=== PATIENT | female | born 1995 | race Caucasian/White ===

== ENCOUNTER 2020-06-20 10:48 | Emergency (ER) | payer MEDICAID, OTHER ==
[2020-06-20 11:08] VITALS: BP 129/85; PULSE 77
--- NOTE | 2020-06-20 11:23 | EDM.PDOC ---
ED HPI GENERAL MEDICAL PROBLEM - General Chief Complaint: Bite:Animal, Insect Stated Complaint: BATS IN THE HOUSE WANT TO BE CHECKED OUT Time Seen by Provider: 06/20/20 11:05 Source of Information: Reports: Patient, Family History Limitations: Reports: No Limitations - History of Present Illness INITIAL COMMENTS - FREE TEXT/NARRATIVE: 24-year-old female wants to be checked out due to potential bat exposure. The last 2 days they have had a bat in the house, the first day it was hanging on the bricks of the chimney and the second day it was flying around the lights near the roof. Her killed both bats. This morning she noticed a little scrape on her child's toe and started looking online and became very scared and came in to be checked. As far she knows there was no human contact with either bat. She just wants reassurance. Onset: Unknown/Unsure Associated Symptoms: Reports: No Other Symptoms - Related Data Allergies Allergy/AdvReac Type Severity Reaction Status Date / Time Penicillins Allergy Hives Verified 06/20/20 11:00 Home Meds: Home Meds NK [No Known Home Meds] 12/12/16 [History] Past Medical History - Past Health History Medical/Surgical History: Denies Medical/Surgical History Gastrointestinal History: Reports: Cholelithiasis MEDICAL ATTENDANT History: Reports: - Past Surgical History GI Surgical History: Reports: Cholecystectomy Female Surgical History: Reports: Section Social & Family History - Tobacco Use Smoking Status *Q: Never Smoker - Caffeine Use Caffeine Use: Reports: None ED ROS GENERAL - Review of Systems Review Of Systems: See Below Constitutional: Denies: Fever, Chills Respiratory: Denies: Shortness of Breath GI/Abdominal: Denies: Abdominal Pain Musculoskeletal: Reports: No Symptoms Skin: Reports: No Symptoms Neurological: Denies: Headache Psychiatric: Reports: Anxiety ED EXAM, ANIMAL BITE - Physical Exam Exam: See Below Exam Limited By: No Limitations General Appearance: Alert, No Apparent Distress Head: Atraumatic Respiratory/Chest: No Respiratory Distress Neurological: Alert, Oriented Psychiatric: Anxious Skin Exam: Normal Color Course - Vital Signs Last Recorded V/S: Last Vital Signs Temp 97.7 F 06/20/20 11:06 Pulse 77 06/20/20 11:06 Resp 14 06/20/20 11:06 BP 129/85 06/20/20 11:06 Pulse Ox 98 08/02/20 11:06 - Re-Assessments/Exams Free Text/Narrative Re-Assessment/Exam: 06/20/20 11:20 I did look at her child's toe and there is a small superficial linear scrape, it is not a bite. She has no skin lesions whatsoever, no symptoms. I cannot recommend rabies prophylaxis with this small amount of exposure. They do still have a second bad in the garage, if they want it sent in for testing they can call the [facility], I think that is an option. Departure - Departure Time of Disposition: 11:41 Disposition: Home, Self-Care 01 Clinical Impression: Exposure to bat without known bite - Discharge Information Instructions: VIS, Rabies - CDC (11/26/2019) Referrals: PCP,None [Primary Care Provider] - Forms: ED Department Discharge Care Plan Goals: If interested you can send the bat for testing, information given. Sepsis Event Note (ED) - Evaluation Sepsis Screening Result: No Definite Risk - Focused Exam Vital Signs: Vital Signs Temp Pulse Resp BP Pulse Ox 06/20/20 11:06 97.7 F 77 14 129/85 98
== END 2020-06-20 11:41 | disposition home or self-care (01) ==
LOC: JP.ED 10:48
DX: Z20.3 Contact with and (suspected) exposure to rabies (principal); Z88.0 Allergy status to penicillin
CPT/HCPCS: 99282; 99283

== ENCOUNTER 2022-02-13 22:11 | Emergency (ER) | payer OTHER ==
[2022-02-13 22:37] VITALS: BP 115/68; PULSE 74
== END 2022-02-14 00:18 | disposition home or self-care (01) ==
LOC: JP.ED 22:11
DX: O03.9 Complete or unspecified spontaneous abortion without complication (principal); Z88.0 Allergy status to penicillin
CPT/HCPCS: 36415; 76801; 76801-26; 84702; 99281; 99284-25

== ENCOUNTER 2022-02-19 11:42 | Emergency (ER) | payer OTHER ==
[2022-02-19 12:03] VITALS: BP 115/71; PULSE 94
[2022-02-19] MEDS ORDERED: Ondansetron 4 MG/2 ML SDV IVPUSH ONE (12:16)
[2022-02-19] MEDS ORDERED: HYDROmorphone 0.5 MG/0.5 ML Syringe IVPUSH ONE ×2 (12:16→14:04)
[2022-02-19] MEDS ORDERED: Sodium Chloride 0.9% 1,000 ML IV SCH (12:30)
== END 2022-02-19 14:37 | disposition home or self-care (01) ==
LOC: JP.ED 11:42
DX: K52.9 Noninfective gastroenteritis and colitis, unspecified (principal); Z88.0 Allergy status to penicillin; Z90.49 Acquired absence of other specified parts of digestive tract
CPT/HCPCS: 36415; 80053; 83690; 85025; 96374; 96375; 96376; 99284; 99284-25; J1170; J2405; J7030

== ENCOUNTER 2025-01-07 18:19 | Emergency (ER) | payer OTHER ==
[2025-01-07 18:53] LABS: BASOPHILS PERCENT AUTO 0.2 % (0.1-1.3); EOSINOPHILS ABSOLUTE AUTO 0.08 K/uL (0.00-0.40); EOSINOPHILS PERCENT AUTO 1.3 % (0.0-5.4); HEMATOCRIT 34.4 % (34.3-46.0); IMMATURE GRAN PERCENT AUTO 0.3 % (0.0-0.7); LYMPHOCYTES ABSOLUTE AUTO 2.33 K/uL (0.8-3.3); LYMPHOCYTES PERCENT AUTO 37.4 % (11.4-47.7); MEAN CORPUSCULAR HEMOGLOBIN 23.7 pg (31.6-35.5); MONOCYTES ABSOLUTE AUTO 0.51 K/uL (0.20-0.90); MONOCYTES PERCENT AUTO 8.2 % (3.3-12.6); NEUTROPHILS ABSOLUTE AUTO 3.28 K/uL (1.0-7.6); NEUTROPHILS PERCENT AUTO 52.6 % (40.0-78.1); PLATELET COUNT,PLT 269 K/uL (130-375); RED BLOOD CELL COUNT 4.65 M/uL (3.77-5.24); WHITE BLOOD CELL COUNT,WBC 6.2 K/uL (3.2-11.0)
[2025-01-07 19:05] LABS: BASOPHILS ABSOLUTE AUTO 0.01 K/uL (0.00-0.10); IMMATURE GRAN ABSOLUTE AUTO 0.02 K/uL (0.00-0.23)
[2025-01-07 19:28] LABS: A/G RATIO 1.2 (1.2-2.2); ALANINE AMINOTRANSFERASE,ALT 20 U/L (12-78); ALKALINE PHOSPHATASE 78 U/L (46-116); ASPARTATE AMNIOTRANSFERASE,AST 18 U/L (15-37); BILIRUBIN TOTAL 0.4 mg/dL (0.2-1.0); BLOOD UREA NITROGEN,BUN 12 mg/dL (7-18); CALCIUM 9.2 mg/dL (8.5-10.1); CARBON DIOXIDE,CO2 29 mmol/L (21-32); CHLORIDE,CL 101 mmol/L (100-108); CREATININE 0.9 mg/dL (0.6-1.0); ESTIMATED GFR 89 mL/min (>60); GLUCOSE RANDOM 93 mg/dL (74-106); POTASSIUM,K 3.6 mmol/L (3.6-5.2); PROTEIN TOTAL,TP 7.4 g/dL (6.4-8.2); SODIUM,NA 138 mmol/L (140-148)
[2025-01-07 19:29] LABS: ANION GAP 11.6 mmol/L (5.0-14.0)
[2025-01-07 19:37] LABS: APPEARANCE,URINE CLEAR (CLEAR); BILIRUBIN,URINE NEGATIVE (NEGATIVE); COLOR,URINE YELLOW (YELLOW); GLUCOSE,URINE NEGATIVE (NEGATIVE); KETONES,URINE NEGATIVE (NEGATIVE); LEUKOCYTE ESTERASE,URINE NEGATIVE (NEGATIVE); NITRITE,URINE NEGATIVE (NEGATIVE); OCCULT BLOOD,URINE NEGATIVE (NEGATIVE); PROTEIN,URINE NEGATIVE (NEGATIVE); UROBILINOGEN,URINE 0.2 EU/dL (0.2-1.0)
[2025-01-07 19:43] LABS: AMORPHOUS SEDIMENT,URINE NOT SEEN; BACTERIA,URINE NOT SEEN; EPITHELIAL CELLS,URINE NOT SEEN; MUCUS,URINE NOT SEEN; RBC,URINE 0-5 (0-5); WBC,URINE 0-5 (0-5)
[2025-01-07 19:51] LABS: CREATININE,URINE RAND < 13.0 mg/dL (20.0-370.0); PROTEIN,URINE RANDOM < 6.0 mg/dL (6.0-11.9)
[2025-01-07] MEDS: Labetalol 20 MG/4 ML Syringe IVPUSH ONE (22:22)
[2025-01-07] MEDS: hydrALAZINE 20 MG/ML SDV IVPUSH ONE (22:27)
[2025-01-07] MEDS: NIFEdipine 30 MG Tab.ER PO ONE (23:28)
[2025-01-08 00:05] VITALS: BP 138/80; PULSE 53
== END 2025-01-08 00:34 | disposition home or self-care (01) ==
LOC: JP.ED 18:19
DX: O16.5 Unspecified maternal hypertension, complicating the puerperium (principal); Z90.49 Acquired absence of other specified parts of digestive tract; Z86.16 Personal history of COVID-19; Z79.899 Other long term (current) drug therapy; Z88.0 Allergy status to penicillin
CPT/HCPCS: 36415; 70450; 80053; 81001; 82570; 84156; 84484; 85025; 85379; 93005; 96374; 99284; A9270; J0360